=== PATIENT | female | born 1940 | race Caucasian/White ===

== ENCOUNTER → 2023-08-24 08:41 | Outpatient (REF) | payer MEDICARE, SELFPAY | LOC: WDC 08:41 | PROVIDERS: ATTENDING PHYSICIAN Internal Medicine | DX: Z12.31 Encounter for screening mammogram for malignant neoplasm of breast (principal) | CPT/HCPCS: 77063; 77067 ==

== ENCOUNTER → 2023-10-05 13:23 | Outpatient (REF) | payer MEDICARE, SELFPAY | LOC: RAD 13:23 | PROVIDERS: ATTENDING PHYSICIAN Internal Medicine | DX: I73.9 Peripheral vascular disease, unspecified (principal) | CPT/HCPCS: 93922; 93925 ==

== ENCOUNTER → 2023-12-01 12:42 | Outpatient (REF) | payer MEDICARE, SELFPAY | LOC: RAD 12:42 | PROVIDERS: ATTENDING PHYSICIAN Internal Medicine | DX: J22 Unspecified acute lower respiratory infection (principal) | CPT/HCPCS: 71046 ==

== ENCOUNTER → 2024-12-12 09:26 | Outpatient (REF) | payer MEDICARE, SELFPAY | LOC: DHVS 09:26 | PROVIDERS: ATTENDING PHYSICIAN Surgery Vascular Surgery; FAMILY PHYSICIAN Internal Medicine | DX: I73.9 Peripheral vascular disease, unspecified (principal) | CPT/HCPCS: 93922 ==